=== PATIENT | male | born 1970 | race Asian ===

== ENCOUNTER 2021-02-25 18:09 | Inpatient (IN) | payer MEDICAID ==
[~2021-02-25] VITALS: Ht 167.6 cm; Wt 75.3 kg
[2021-02-25] MEDS ORDERED: *PATIENT'S OWN MED [ENTER DRUG, DOSE, FREQUENCY IN COMMENTS] CLINICAL ONE (19:15)
[2021-02-25] MEDS ORDERED: GENTAMICIN SULFATE 0.3% OPHTHALMIC SOLUTION 5 ML TP PRN (19:15)
[2021-02-25] MEDS ORDERED: INFLUENZA VIRUS VACCINE QVS 2021-22 (6MO+)/PF 60 MCG/0.5 ML SYRINGE IM. ONE (20:15)
[2021-02-25 21:04] VITALS: BP 172/101
[2021-02-25] MEDS: DOCUSATE SODIUM 100 MG CAPSULE PO SCH (21:06)
[2021-02-25] MEDS: ETHYL ALCOHOL 62% ANTISEPTIC NASAL INHALANT 0.6 ML AMPUL NASAL SCH (21:06)
[2021-02-25] MEDS: FUROSEMIDE 80 MG TABLET PO SCH (21:06)
[2021-02-25] MEDS: SENNA 187 MG TABLET PO SCH (21:06)
[2021-02-25] MEDS: SODIUM BICARBONATE 650 MG TABLET PO SCH (21:06)
[2021-02-25] MEDS: NIFEdipine 30 MG ER TABLET PO SCH (21:06)
[2021-02-25] MEDS: CARVEDILOL 12.5 MG TABLET PO SCH (21:06)
[2021-02-25 22:13] VITALS: BP 151/82
[2021-02-25] MEDS: DiphenhydrAMINE HCL 25 MG CAPSULE PO PRN (22:13)
[2021-02-25 23:30] VITALS: BP 151/82
[2021-02-26] MEDS: MYCOPHENOLATE SODIUM 180 MG DR TABLET PO SCH ×2 (07:55→15:46)
[2021-02-26] MEDS: SODIUM BICARBONATE 650 MG TABLET PO SCH ×4 (07:55→20:51)
[2021-02-26] MEDS: FUROSEMIDE 80 MG TABLET PO SCH ×2 (07:56→20:52)
[2021-02-26] MEDS: CALCITRIOL 0.25 MCG CAPSULE PO SCH (07:56)
[2021-02-26] MEDS: TACROLIMUS 1 MG PO SCH (07:57)
[2021-02-26] MEDS: NIFEdipine 30 MG ER TABLET PO SCH ×2 (07:57→20:51)
[2021-02-26] MEDS: TACROLIMUS 4 MG PO SCH (07:57)
[2021-02-26] MEDS: ATORVASTATIN CALCIUM 20 MG TABLET PO SCH (07:58)
[2021-02-26] MEDS: CARVEDILOL 12.5 MG TABLET PO SCH ×2 (07:58→20:51)
[2021-02-26] MEDS: DOCUSATE SODIUM 100 MG CAPSULE PO SCH ×2 (07:58→20:52)
[2021-02-26] MEDS: LevETIRAcetam 500 MG TABLET PO SCH (07:58)
[2021-02-26] MEDS: LOSARTAN POTASSIUM 50 MG TABLET PO SCH (07:58)
[2021-02-26] MEDS: PredniSONE 5 MG TABLET PO SCH (07:58)
[2021-02-26] MEDS: ETHYL ALCOHOL 62% ANTISEPTIC NASAL INHALANT 0.6 ML AMPUL NASAL SCH ×2 (07:59→20:52)
[2021-02-26] MEDS ORDERED: TACROLIMUS 1 MG CAPSULE PO SCH (09:00)
[2021-02-26] MEDS ORDERED: LABETALOL HCL 100 MG TABLET PO SCH (09:00)
[2021-02-26] MEDS ORDERED: HydrALAZINE HCL 20 MG/ML VIAL IVP PRN (09:00)
[2021-02-26 09:17] VITALS: BP 145/87
[2021-02-26] MEDS: GENTAMICIN SULFATE 0.3% OPHTHALMIC SOLUTION 5 ML TP SCH (10:07)
[2021-02-26 10:22] LABS: BASOPHILS % (AUTO) 0.2 % (0.0-2.0); EOSINOPHILS % (AUTO) 1.6 % (1.0-6.0); HEMATOCRIT 35.2 % (41-53); HEMOGLOBIN 11.1 g/dL (13.5-17.5); LYMPHOCYTES % (AUTO) 14.3 % (22.0-44.0); MEAN CORPUSCULAR HEMOGLOBIN 27.3 pg (26.0-34.0); MEAN CORPUSCULAR HGB CONC 31.5 G/dL (31.0-37.0); MEAN CORPUSCULAR VOLUME 87 fL (80-100); MONOCYTES % (AUTO) 7.2 % (2.0-9.0); NEUTROPHILS # (AUTO) 10.5 K/uL (1.8-7.7); NEUTROPHILS % (AUTO) 76.7 % (40.0-70.0); PLATELET COUNT (AUTO) 261 K/uL (150-450); RED BLOOD CELL COUNT(AUTO) 4.07 MIL/uL (4.50-5.90); RED CELL DISTRIBUTION WIDTH 16.2 % (11.5-14.5)
[2021-02-26 10:40] LABS: ALBUMIN 2.5 g/dL (3.4-5.0); BILIRUBIN,TOTAL 0.3 mg/dL (0.1-1.0); CALCIUM, TOTAL 9.5 mg/dL (8.8-10.5); CREATININE 15.09 mg/dL (0.60-1.30); POTASSIUM 4.4 mmol/L (3.5-5.1); TOTAL PROTEIN, SERUM 7.5 g/dL (6.4-8.2)
[2021-02-26 16:00] VITALS: BP 116/79
[2021-02-26] MEDS ORDERED: HydrALAZINE HCL 10 MG TABLET PO PRN (20:45)
[2021-02-26 20:50] VITALS: BP 160/92
[2021-02-26] MEDS: SENNA 187 MG TABLET PO SCH (20:52)
[2021-02-26 21:09] VITALS: BP 160/92
[2021-02-26 21:37] VITALS: BP 143/87
[2021-02-27 00:48] VITALS: BP 148/90
[2021-02-27] MEDS: MYCOPHENOLATE SODIUM 180 MG DR TABLET PO SCH ×2 (06:54→16:00)
[2021-02-27] MEDS: ETHYL ALCOHOL 62% ANTISEPTIC NASAL INHALANT 0.6 ML AMPUL NASAL SCH ×2 (07:33→20:21)
[2021-02-27] MEDS: ATORVASTATIN CALCIUM 20 MG TABLET PO SCH (07:33)
[2021-02-27] MEDS: CARVEDILOL 12.5 MG TABLET PO SCH ×2 (07:33→20:21)
[2021-02-27] MEDS: LOSARTAN POTASSIUM 50 MG TABLET PO SCH (07:33)
[2021-02-27] MEDS: DOCUSATE SODIUM 100 MG CAPSULE PO SCH ×2 (07:33→20:24)
[2021-02-27] MEDS: SODIUM BICARBONATE 650 MG TABLET PO SCH ×4 (07:33→20:21)
[2021-02-27] MEDS: FUROSEMIDE 80 MG TABLET PO SCH ×2 (07:34→20:21)
[2021-02-27] MEDS: NIFEdipine 30 MG ER TABLET PO SCH ×2 (07:34→20:21)
[2021-02-27] MEDS: CALCITRIOL 0.25 MCG CAPSULE PO SCH (07:34)
[2021-02-27] MEDS: LevETIRAcetam 500 MG TABLET PO SCH (07:34)
[2021-02-27 08:00] LABS: CALCIUM, TOTAL 9.7 mg/dL (8.8-10.5); CREATININE 14.51 mg/dL (0.60-1.30); MAGNESIUM 2.8 mg/dL (1.80-2.40); POTASSIUM 4.8 mmol/L (3.5-5.1)
[2021-02-27 08:19] LABS: PHOSPHORUS 11.2 mg/dL (2.5-4.9)
[2021-02-27] MEDS: PredniSONE 5 MG TABLET PO SCH (09:30)
[2021-02-27] MEDS: TACROLIMUS 1 MG PO SCH (09:31)
[2021-02-27] MEDS: TACROLIMUS 4 MG PO SCH (10:25)
[2021-02-27] MEDS: SEVELAMER CARBONATE 800 MG TABLET PO SCH ×2 (12:43→17:37)
[2021-02-27 13:01] VITALS: BP 148/89
[2021-02-27] MEDS: LABETALOL HCL 100 MG TABLET PO SCH ×2 (14:44→20:26)
[2021-02-27 16:00] VITALS: BP 126/78
[2021-02-27] MEDS: DOCUSATE SODIUM 283 MG/5 ML MINI-ENEMA PR SCH (17:38)
[2021-02-27] MEDS: GENTAMICIN SULFATE 0.3% OPHTHALMIC SOLUTION 5 ML TP SCH (18:21)
[2021-02-27 20:10] VITALS: BP 140/86
[2021-02-27] MEDS: DiphenhydrAMINE HCL 25 MG CAPSULE PO PRN (20:21)
[2021-02-27] MEDS: SENNA 187 MG TABLET PO SCH (20:23)
[2021-02-27 23:45] VITALS: BP 142/83
[2021-02-28] MEDS: MYCOPHENOLATE SODIUM 180 MG DR TABLET PO SCH ×2 (05:57→15:21)
[2021-02-28 06:55] LABS: CALCIUM, TOTAL 9.4 mg/dL (8.8-10.5); CREATININE 13.69 mg/dL (0.60-1.30); MAGNESIUM 2.5 mg/dL (1.80-2.40); POTASSIUM 4.6 mmol/L (3.5-5.1)
[2021-02-28 07:21] LABS: PHOSPHORUS 11.5 mg/dL (2.5-4.9)
[2021-02-28 08:00] VITALS: BP 134/83
[2021-02-28] MEDS: DOCUSATE SODIUM 100 MG CAPSULE PO SCH ×2 (09:00→20:34)
[2021-02-28] MEDS: SEVELAMER CARBONATE 800 MG TABLET PO SCH ×3 (09:29→17:41)
[2021-02-28] MEDS: ETHYL ALCOHOL 62% ANTISEPTIC NASAL INHALANT 0.6 ML AMPUL NASAL SCH ×2 (09:30→20:24)
[2021-02-28] MEDS: TACROLIMUS 1 MG PO SCH (09:31)
[2021-02-28] MEDS: TACROLIMUS 4 MG PO SCH (09:32)
[2021-02-28] MEDS: LOSARTAN POTASSIUM 50 MG TABLET PO SCH (09:33)
[2021-02-28] MEDS: CARVEDILOL 12.5 MG TABLET PO SCH ×2 (09:33→20:24)
[2021-02-28] MEDS: PredniSONE 5 MG TABLET PO SCH (09:35)
[2021-02-28] MEDS: LevETIRAcetam 500 MG TABLET PO SCH (09:36)
[2021-02-28] MEDS: FUROSEMIDE 80 MG TABLET PO SCH ×2 (09:37→20:24)
[2021-02-28] MEDS: ATORVASTATIN CALCIUM 20 MG TABLET PO SCH (09:37)
[2021-02-28] MEDS: NIFEdipine 30 MG ER TABLET PO SCH ×2 (09:38→20:24)
[2021-02-28] MEDS: CALCITRIOL 0.25 MCG CAPSULE PO SCH (09:39)
[2021-02-28] MEDS: LABETALOL HCL 100 MG TABLET PO SCH ×2 (09:43→20:24)
[2021-02-28] MEDS: SODIUM BICARBONATE 650 MG TABLET PO SCH ×4 (09:43→20:24)
[2021-02-28] MEDS: GENTAMICIN SULFATE 0.3% OPHTHALMIC SOLUTION 5 ML TP SCH (09:47)
[2021-02-28 16:05] VITALS: BP 132/72
[2021-02-28] MEDS: DOCUSATE SODIUM 283 MG/5 ML MINI-ENEMA PR SCH (18:42)
[2021-02-28 20:20] VITALS: BP 140/83
[2021-02-28] MEDS: DiphenhydrAMINE HCL 25 MG CAPSULE PO PRN (20:24)
[2021-02-28] MEDS: SENNA 187 MG TABLET PO SCH (20:34)
[2021-03-01 00:33] VITALS: BP 134/79
[2021-03-01] MEDS: MYCOPHENOLATE SODIUM 180 MG DR TABLET PO SCH ×2 (06:16→16:31)
[2021-03-01 06:27] LABS: CALCIUM, TOTAL 9.3 mg/dL (8.8-10.5); CREATININE 13.51 mg/dL (0.60-1.30); MAGNESIUM 2.7 mg/dL (1.80-2.40); POTASSIUM 4.5 mmol/L (3.5-5.1)
[2021-03-01] MEDS: SEVELAMER CARBONATE 800 MG TABLET PO SCH ×3 (08:31→17:42)
[2021-03-01] MEDS: SODIUM BICARBONATE 650 MG TABLET PO SCH ×4 (08:40→21:32)
[2021-03-01] MEDS: CARVEDILOL 12.5 MG TABLET PO SCH ×2 (08:40→21:32)
[2021-03-01] MEDS: ATORVASTATIN CALCIUM 20 MG TABLET PO SCH (08:40)
[2021-03-01] MEDS: DOCUSATE SODIUM 100 MG CAPSULE PO SCH ×2 (08:40→19:37)
[2021-03-01] MEDS: LevETIRAcetam 500 MG TABLET PO SCH (08:40)
[2021-03-01] MEDS: TACROLIMUS 1 MG PO SCH (08:41)
[2021-03-01] MEDS: CALCITRIOL 0.25 MCG CAPSULE PO SCH (08:41)
[2021-03-01] MEDS: NIFEdipine 30 MG ER TABLET PO SCH ×2 (08:41→21:32)
[2021-03-01] MEDS: GENTAMICIN SULFATE 0.3% OPHTHALMIC SOLUTION 5 ML TP SCH (08:42)
[2021-03-01] MEDS: TACROLIMUS 4 MG PO SCH (08:43)
[2021-03-01] MEDS: LABETALOL HCL 100 MG TABLET PO SCH ×2 (08:44→21:42)
[2021-03-01] MEDS: FUROSEMIDE 80 MG TABLET PO SCH ×2 (08:45→21:32)
[2021-03-01] MEDS: PredniSONE 5 MG TABLET PO SCH (08:45)
[2021-03-01] MEDS: LOSARTAN POTASSIUM 50 MG TABLET PO SCH (08:47)
[2021-03-01] MEDS: ETHYL ALCOHOL 62% ANTISEPTIC NASAL INHALANT 0.6 ML AMPUL NASAL SCH ×2 (08:47→21:31)
[2021-03-01 09:01] VITALS: BP 139/87
[2021-03-01] MEDS: ACETAMINOPHEN 325 MG TABLET PO PRN (09:01)
[2021-03-01] MEDS: DiphenhydrAMINE HCL 25 MG CAPSULE PO PRN (12:16)
[2021-03-01] MEDS: NYSTATIN 15 GM POWDER BOTTLE TP SCH ×2 (16:31→21:31)
[2021-03-01 16:37] VITALS: BP 131/77
[2021-03-01] MEDS: DOCUSATE SODIUM 283 MG/5 ML MINI-ENEMA PR SCH (19:32)
[2021-03-01] MEDS: SENNA 187 MG TABLET PO SCH (19:37)
[2021-03-01 21:27] VITALS: BP 135/75
[2021-03-02] MEDS: DiphenhydrAMINE HCL 25 MG CAPSULE PO PRN (01:19)
[2021-03-02 01:22] VITALS: BP 130/77
[2021-03-02] MEDS: NYSTATIN 15 GM POWDER BOTTLE TP SCH ×3 (07:18→20:43)
[2021-03-02] MEDS: TACROLIMUS 4 MG PO SCH (07:19)
[2021-03-02] MEDS: TACROLIMUS 1 MG PO SCH (07:19)
[2021-03-02] MEDS: PredniSONE 5 MG TABLET PO SCH (07:20)
[2021-03-02] MEDS: MYCOPHENOLATE SODIUM 180 MG DR TABLET PO SCH ×2 (07:20→16:08)
[2021-03-02] MEDS: NIFEdipine 30 MG ER TABLET PO SCH ×2 (07:20→21:19)
[2021-03-02] MEDS: ATORVASTATIN CALCIUM 20 MG TABLET PO SCH (07:20)
[2021-03-02] MEDS: DOCUSATE SODIUM 100 MG CAPSULE PO SCH ×2 (07:20→20:43)
[2021-03-02] MEDS: ETHYL ALCOHOL 62% ANTISEPTIC NASAL INHALANT 0.6 ML AMPUL NASAL SCH ×2 (07:20→20:44)
[2021-03-02] MEDS: SEVELAMER CARBONATE 800 MG TABLET PO SCH ×3 (07:20→18:02)
[2021-03-02] MEDS: FUROSEMIDE 80 MG TABLET PO SCH ×2 (07:21→20:43)
[2021-03-02] MEDS: LevETIRAcetam 500 MG TABLET PO SCH (07:21)
[2021-03-02] MEDS: CARVEDILOL 12.5 MG TABLET PO SCH ×2 (07:21→20:43)
[2021-03-02] MEDS: LOSARTAN POTASSIUM 50 MG TABLET PO SCH (07:21)
[2021-03-02] MEDS: SODIUM BICARBONATE 650 MG TABLET PO SCH ×4 (07:21→20:43)
[2021-03-02] MEDS: LABETALOL HCL 100 MG TABLET PO SCH ×2 (07:21→21:19)
[2021-03-02 07:39] LABS: CALCIUM, TOTAL 8.8 mg/dL (8.8-10.5); CREATININE 13.02 mg/dL (0.60-1.30); MAGNESIUM 2.4 mg/dL (1.80-2.40); POTASSIUM 4.2 mmol/L (3.5-5.1)
[2021-03-02 08:04] LABS: PHOSPHORUS 11.3 mg/dL (2.5-4.9)
[2021-03-02 10:32] VITALS: BP 142/79
[2021-03-02 16:00] VITALS: BP 143/74
[2021-03-02] MEDS: GENTAMICIN SULFATE 0.3% OPHTHALMIC SOLUTION 5 ML TP SCH (16:23)
[2021-03-02 20:42] VITALS: BP 144/81
[2021-03-02] MEDS: SENNA 187 MG TABLET PO SCH (20:43)
[2021-03-02 23:00] VITALS: BP 145/80
[2021-03-03] MEDS: GENTAMICIN SULFATE 0.3% OPHTHALMIC SOLUTION 5 ML TP SCH (07:32)
[2021-03-03] MEDS: TACROLIMUS 1 MG PO SCH (07:32)
[2021-03-03] MEDS: NYSTATIN 15 GM POWDER BOTTLE TP SCH ×3 (07:32→20:31)
[2021-03-03] MEDS: ACETAMINOPHEN 325 MG TABLET PO PRN (07:34)
[2021-03-03] MEDS: DOCUSATE SODIUM 100 MG CAPSULE PO SCH ×2 (07:34→20:30)
[2021-03-03] MEDS: SODIUM BICARBONATE 650 MG TABLET PO SCH ×4 (07:34→20:31)
[2021-03-03] MEDS: NIFEdipine 30 MG ER TABLET PO SCH ×2 (07:34→20:58)
[2021-03-03] MEDS: MYCOPHENOLATE SODIUM 180 MG DR TABLET PO SCH ×2 (07:34→16:23)
[2021-03-03] MEDS: FUROSEMIDE 80 MG TABLET PO SCH ×2 (07:38→20:58)
[2021-03-03] MEDS: LevETIRAcetam 500 MG TABLET PO SCH (07:38)
[2021-03-03] MEDS: PredniSONE 5 MG TABLET PO SCH (07:39)
[2021-03-03] MEDS: CARVEDILOL 12.5 MG TABLET PO SCH ×2 (07:39→20:33)
[2021-03-03] MEDS: LOSARTAN POTASSIUM 50 MG TABLET PO SCH (07:39)
[2021-03-03] MEDS: ATORVASTATIN CALCIUM 20 MG TABLET PO SCH (07:39)
[2021-03-03] MEDS: LABETALOL HCL 100 MG TABLET PO SCH ×2 (07:39→20:33)
[2021-03-03 08:00] VITALS: BP 155/82
[2021-03-03 08:08] LABS: BASOPHILS % (AUTO) 0.3 % (0.0-2.0); EOSINOPHILS % (AUTO) 1.5 % (1.0-6.0); HEMATOCRIT 30.9 % (41-53); HEMOGLOBIN 9.9 g/dL (13.5-17.5); LYMPHOCYTES # (AUTO) 2.4 K/uL (1.0-4.8); LYMPHOCYTES % (AUTO) 20.4 % (22.0-44.0); MEAN CORPUSCULAR HEMOGLOBIN 27.5 pg (26.0-34.0); MEAN CORPUSCULAR HGB CONC 32.1 G/dL (31.0-37.0); MEAN CORPUSCULAR VOLUME 86 fL (80-100); MONOCYTES # (AUTO) 1.1 K/uL (0.1-1.0); MONOCYTES % (AUTO) 8.9 % (2.0-9.0); NEUTROPHILS # (AUTO) 8.2 K/uL (1.8-7.7); NEUTROPHILS % (AUTO) 68.9 % (40.0-70.0); PLATELET COUNT (AUTO) 282 K/uL (150-450); RED BLOOD CELL COUNT(AUTO) 3.61 MIL/uL (4.50-5.90); RED CELL DISTRIBUTION WIDTH 15.9 % (11.5-14.5)
[2021-03-03] MEDS: SEVELAMER CARBONATE 800 MG TABLET PO SCH ×3 (08:08→17:46)
[2021-03-03] MEDS: ETHYL ALCOHOL 62% ANTISEPTIC NASAL INHALANT 0.6 ML AMPUL NASAL SCH ×2 (09:19→20:28)
[2021-03-03] MEDS: TACROLIMUS 4 MG PO SCH (09:21)
[2021-03-03 10:00] VITALS: BP 120/82
[2021-03-03 16:34] VITALS: BP 151/68
[2021-03-03] MEDS: SENNA 187 MG TABLET PO SCH (20:30)
[2021-03-03 20:32] VITALS: BP 153/90
[2021-03-03] MEDS: DiphenhydrAMINE HCL 25 MG CAPSULE PO PRN (23:30)
[2021-03-03 23:35] VITALS: BP 144/75
[2021-03-04] MEDS: MYCOPHENOLATE SODIUM 180 MG DR TABLET PO SCH ×2 (05:33→15:11)
[2021-03-04 07:56] LABS: CALCIUM, TOTAL 8.7 mg/dL (8.8-10.5); CREATININE 14.03 mg/dL (0.60-1.30); MAGNESIUM 2.4 mg/dL (1.80-2.40); POTASSIUM 4.1 mmol/L (3.5-5.1)
[2021-03-04 08:32] LABS: PHOSPHORUS 11.3 mg/dL (2.5-4.9)
[2021-03-04] MEDS: ERGOCALCIFEROL (VIT D2) 50,000 UNITS [1,250 MCG] CAPSULE PO SCH (08:37)
[2021-03-04] MEDS: SODIUM BICARBONATE 650 MG TABLET PO SCH ×4 (08:37→22:01)
[2021-03-04] MEDS: LABETALOL HCL 100 MG TABLET PO SCH ×2 (08:37→22:31)
[2021-03-04] MEDS: FUROSEMIDE 80 MG TABLET PO SCH ×2 (08:38→22:31)
[2021-03-04] MEDS: PredniSONE 5 MG TABLET PO SCH (08:38)
[2021-03-04] MEDS: SEVELAMER CARBONATE 800 MG TABLET PO SCH ×3 (08:39→22:00)
[2021-03-04] MEDS: LOSARTAN POTASSIUM 50 MG TABLET PO SCH (08:40)
[2021-03-04] MEDS: LevETIRAcetam 500 MG TABLET PO SCH (08:40)
[2021-03-04] MEDS: NIFEdipine 30 MG ER TABLET PO SCH ×2 (08:40→22:01)
[2021-03-04] MEDS: CARVEDILOL 12.5 MG TABLET PO SCH ×2 (08:40→22:00)
[2021-03-04] MEDS: ATORVASTATIN CALCIUM 20 MG TABLET PO SCH (08:41)
[2021-03-04] MEDS: TACROLIMUS 4 MG PO SCH (08:42)
[2021-03-04] MEDS: TACROLIMUS 1 MG PO SCH (08:42)
[2021-03-04] MEDS: NYSTATIN 15 GM POWDER BOTTLE TP SCH ×3 (08:43→22:31)
[2021-03-04] MEDS: DOCUSATE SODIUM 100 MG CAPSULE PO SCH ×2 (08:44→22:00)
[2021-03-04] MEDS: ETHYL ALCOHOL 62% ANTISEPTIC NASAL INHALANT 0.6 ML AMPUL NASAL SCH ×2 (08:44→22:00)
[2021-03-04 09:17] VITALS: BP 151/83
[2021-03-04] MEDS: GENTAMICIN SULFATE 0.3% OPHTHALMIC SOLUTION 5 ML TP SCH (10:00)
[2021-03-04] MEDS: FLUCONAZOLE 100 MG TABLET PO SCH (12:07)
[2021-03-04 16:01] VITALS: BP 147/80
[2021-03-04] MEDS ORDERED: SODIUM CHLORIDE 0.9% 1,000 ML ONE ×2 (16:55)
[2021-03-04 21:57] VITALS: BP 144/91
[2021-03-04] MEDS: SENNA 187 MG TABLET PO SCH (22:00)
[2021-03-04] MEDS: DiphenhydrAMINE HCL 25 MG CAPSULE PO PRN (22:34)
[2021-03-05 07:12] LABS: CALCIUM, TOTAL 8.8 mg/dL (8.8-10.5); CREATININE 7.6 mg/dL (0.60-1.30); MAGNESIUM 2.1 mg/dL (1.80-2.40); PHOSPHORUS 6.1 mg/dL (2.5-4.9); POTASSIUM 3.7 mmol/L (3.5-5.1)
[2021-03-05] MEDS: MYCOPHENOLATE SODIUM 180 MG DR TABLET PO SCH ×2 (07:27→16:32)
[2021-03-05] MEDS: TACROLIMUS 4 MG PO SCH (07:49)
[2021-03-05] MEDS: TACROLIMUS 1 MG PO SCH (07:49)
[2021-03-05] MEDS: SEVELAMER CARBONATE 800 MG TABLET PO SCH ×3 (07:49→16:32)
[2021-03-05] MEDS: ETHYL ALCOHOL 62% ANTISEPTIC NASAL INHALANT 0.6 ML AMPUL NASAL SCH ×2 (07:49→20:52)
[2021-03-05] MEDS: DOCUSATE SODIUM 100 MG CAPSULE PO SCH ×2 (07:50→20:53)
[2021-03-05] MEDS: LABETALOL HCL 100 MG TABLET PO SCH ×2 (07:51→20:54)
[2021-03-05] MEDS: ATORVASTATIN CALCIUM 20 MG TABLET PO SCH (07:51)
[2021-03-05] MEDS: SODIUM BICARBONATE 650 MG TABLET PO SCH ×4 (07:51→20:53)
[2021-03-05] MEDS: NIFEdipine 30 MG ER TABLET PO SCH ×2 (07:52→20:53)
[2021-03-05] MEDS: FUROSEMIDE 80 MG TABLET PO SCH ×2 (07:52→20:52)
[2021-03-05] MEDS: CARVEDILOL 12.5 MG TABLET PO SCH ×2 (07:52→20:53)
[2021-03-05] MEDS: LevETIRAcetam 500 MG TABLET PO SCH (07:52)
[2021-03-05] MEDS: LOSARTAN POTASSIUM 50 MG TABLET PO SCH (07:52)
[2021-03-05] MEDS: PredniSONE 5 MG TABLET PO SCH (07:53)
[2021-03-05] MEDS: FLUCONAZOLE 100 MG TABLET PO SCH (07:53)
[2021-03-05] MEDS: NYSTATIN 15 GM POWDER BOTTLE TP SCH ×3 (07:53→20:54)
[2021-03-05 09:42] VITALS: BP 133/76
[2021-03-05 19:34] VITALS: BP 131/61
[2021-03-05] MEDS: SENNA 187 MG TABLET PO SCH (20:53)
[2021-03-05 23:46] VITALS: BP 132/77
[2021-03-06] MEDS: MYCOPHENOLATE SODIUM 180 MG DR TABLET PO SCH ×2 (08:15→16:11)
[2021-03-06] MEDS: FLUCONAZOLE 100 MG TABLET PO SCH (08:16)
[2021-03-06] MEDS: SODIUM BICARBONATE 650 MG TABLET PO SCH (08:16)
[2021-03-06] MEDS: NIFEdipine 30 MG ER TABLET PO SCH ×2 (08:17→23:39)
[2021-03-06] MEDS: CARVEDILOL 12.5 MG TABLET PO SCH (08:17)
[2021-03-06] MEDS: LOSARTAN POTASSIUM 50 MG TABLET PO SCH (08:17)
[2021-03-06] MEDS: SEVELAMER CARBONATE 800 MG TABLET PO SCH ×3 (08:17→17:39)
[2021-03-06] MEDS: FUROSEMIDE 80 MG TABLET PO SCH (08:18)
[2021-03-06] MEDS: LABETALOL HCL 100 MG TABLET PO SCH ×2 (08:18→23:39)
[2021-03-06] MEDS: DOCUSATE SODIUM 100 MG CAPSULE PO SCH ×2 (08:18→23:39)
[2021-03-06] MEDS: PredniSONE 5 MG TABLET PO SCH (08:18)
[2021-03-06] MEDS: LevETIRAcetam 500 MG TABLET PO SCH (08:19)
[2021-03-06] MEDS: TACROLIMUS 4 MG PO SCH (08:19)
[2021-03-06] MEDS: TACROLIMUS 1 MG PO SCH (08:19)
[2021-03-06] MEDS: ATORVASTATIN CALCIUM 20 MG TABLET PO SCH (08:19)
[2021-03-06] MEDS: NYSTATIN 15 GM POWDER BOTTLE TP SCH ×3 (08:20→21:30)
[2021-03-06] MEDS: ETHYL ALCOHOL 62% ANTISEPTIC NASAL INHALANT 0.6 ML AMPUL NASAL SCH ×2 (08:21→21:30)
[2021-03-06 10:35] VITALS: BP 117/65
[2021-03-06 16:10] VITALS: BP 141/77
[2021-03-06] MEDS ORDERED: SODIUM CHLORIDE 0.9% 1,000 ML ONE (18:41)
[2021-03-06] MEDS: DiphenhydrAMINE HCL 25 MG CAPSULE PO PRN (23:37)
[2021-03-06] MEDS: SENNA 187 MG TABLET PO SCH (23:39)
[2021-03-07 00:12] VITALS: BP 142/81
[2021-03-07] MEDS: CARVEDILOL 12.5 MG TABLET PO SCH ×3 (00:20→20:53)
[2021-03-07] MEDS: FUROSEMIDE 80 MG TABLET PO SCH ×3 (00:20→22:09)
[2021-03-07 08:00] VITALS: BP 122/76
[2021-03-07] MEDS: MYCOPHENOLATE SODIUM 180 MG DR TABLET PO SCH ×2 (08:09→16:36)
[2021-03-07] MEDS: SEVELAMER CARBONATE 800 MG TABLET PO SCH ×3 (08:09→18:00)
[2021-03-07] MEDS: DiphenhydrAMINE HCL 25 MG CAPSULE PO PRN (08:09)
[2021-03-07] MEDS: ETHYL ALCOHOL 62% ANTISEPTIC NASAL INHALANT 0.6 ML AMPUL NASAL SCH ×2 (10:20→20:53)
[2021-03-07] MEDS: TACROLIMUS 1 MG PO SCH (10:21)
[2021-03-07] MEDS: DOCUSATE SODIUM 100 MG CAPSULE PO SCH ×2 (10:21→20:54)
[2021-03-07] MEDS: TACROLIMUS 4 MG PO SCH (10:21)
[2021-03-07] MEDS: PredniSONE 5 MG TABLET PO SCH (10:22)
[2021-03-07] MEDS: LOSARTAN POTASSIUM 50 MG TABLET PO SCH (10:22)
[2021-03-07] MEDS: FLUCONAZOLE 100 MG TABLET PO SCH (10:22)
[2021-03-07] MEDS: ATORVASTATIN CALCIUM 20 MG TABLET PO SCH (10:23)
[2021-03-07] MEDS: LevETIRAcetam 500 MG TABLET PO SCH (10:23)
[2021-03-07] MEDS: LABETALOL HCL 100 MG TABLET PO SCH ×2 (10:24→22:09)
[2021-03-07] MEDS: NIFEdipine 30 MG ER TABLET PO SCH ×2 (10:24→21:31)
[2021-03-07] MEDS: NYSTATIN 15 GM POWDER BOTTLE TP SCH ×3 (11:58→20:54)
[2021-03-07 15:22] VITALS: BP 138/83
[2021-03-07 20:48] VITALS: BP 136/76
[2021-03-07] MEDS: SENNA 187 MG TABLET PO SCH (20:54)
[2021-03-07 22:05] VITALS: BP 131/79
[2021-03-08 00:32] VITALS: BP 140/79
[2021-03-08] MEDS ORDERED: DOCUSATE SODIUM 100 MG CAPSULE PO PRN (06:15)
[2021-03-08] MEDS: MYCOPHENOLATE SODIUM 180 MG DR TABLET PO SCH ×2 (07:27→15:31)
[2021-03-08] MEDS: TACROLIMUS 1 MG PO SCH (07:27)
[2021-03-08] MEDS: FUROSEMIDE 80 MG TABLET PO SCH ×2 (07:27→21:09)
[2021-03-08] MEDS: ETHYL ALCOHOL 62% ANTISEPTIC NASAL INHALANT 0.6 ML AMPUL NASAL SCH ×2 (07:27→20:22)
[2021-03-08] MEDS: LABETALOL HCL 100 MG TABLET PO SCH ×2 (07:28→20:17)
[2021-03-08] MEDS: LevETIRAcetam 500 MG TABLET PO SCH (07:28)
[2021-03-08] MEDS: PredniSONE 5 MG TABLET PO SCH (07:28)
[2021-03-08] MEDS: SEVELAMER CARBONATE 800 MG TABLET PO SCH ×3 (07:28→17:26)
[2021-03-08] MEDS: NYSTATIN 15 GM POWDER BOTTLE TP SCH ×3 (07:28→20:18)
[2021-03-08] MEDS: CARVEDILOL 12.5 MG TABLET PO SCH ×2 (07:29→20:17)
[2021-03-08] MEDS: ATORVASTATIN CALCIUM 20 MG TABLET PO SCH (07:29)
[2021-03-08] MEDS: NIFEdipine 30 MG ER TABLET PO SCH ×2 (07:29→21:09)
[2021-03-08] MEDS: LOSARTAN POTASSIUM 50 MG TABLET PO SCH (07:29)
[2021-03-08] MEDS: TACROLIMUS 4 MG PO SCH (07:32)
[2021-03-08] MEDS: EPOETIN ALFA 10,000 UNITS/ML 2 ML VIAL SQ SCH (07:36)
[2021-03-08 09:00] VITALS: BP 116/74
[2021-03-08 16:18] VITALS: BP 104/54
[2021-03-08 20:17] VITALS: BP 129/79
[2021-03-08 23:21] VITALS: BP 141/82
[2021-03-09] MEDS: DiphenhydrAMINE HCL 25 MG CAPSULE PO PRN (01:27)
[2021-03-09] MEDS ORDERED: ATOR20TA86 PO ×2 (03:00→04:41)
[2021-03-09] MEDS ORDERED: GABA-1181 PO (03:00)
[2021-03-09] MEDS ORDERED: DULO20CA27 PO (03:00)
[2021-03-09] MEDS ORDERED: FAMO20 PO (03:00)
[2021-03-09] MEDS ORDERED: ASCO500 PO (03:00)
[2021-03-09] MEDS ORDERED: MULT-1133 PO (03:00)
[2021-03-09] MEDS ORDERED: SEVE800T17 PO (04:41)
[2021-03-09] MEDS ORDERED: TACR4TAB PO (04:41)
[2021-03-09] MEDS ORDERED: ERGO500054 PO (04:41)
[2021-03-09] MEDS ORDERED: TACR1TAB PO (04:41)
[2021-03-09] MEDS ORDERED: MYCO180T12 PO (04:41)
[2021-03-09] MEDS ORDERED: NIFE30TA5 PO (04:41)
[2021-03-09] MEDS ORDERED: CARV12 PO (04:41)
[2021-03-09] MEDS ORDERED: LOSA50TA37 PO (04:41)
[2021-03-09] MEDS ORDERED: FURO80 PO (04:41)
[2021-03-09] MEDS ORDERED: LEVE500T20 PO (04:41)
[2021-03-09] MEDS ORDERED: LABE100T51 PO (04:41)
[2021-03-09] MEDS ORDERED: PRED-409 PO (04:41)
[2021-03-09] MEDS: MYCOPHENOLATE SODIUM 180 MG DR TABLET PO SCH ×2 (06:24→15:42)
[2021-03-09] MEDS: FUROSEMIDE 80 MG TABLET PO SCH ×2 (08:07→20:59)
[2021-03-09] MEDS: LABETALOL HCL 100 MG TABLET PO SCH ×2 (08:07→20:59)
[2021-03-09] MEDS: PredniSONE 5 MG TABLET PO SCH (08:07)
[2021-03-09] MEDS: NIFEdipine 30 MG ER TABLET PO SCH ×2 (08:07→20:59)
[2021-03-09] MEDS: SEVELAMER CARBONATE 800 MG TABLET PO SCH ×3 (08:07→17:00)
[2021-03-09] MEDS: LevETIRAcetam 500 MG TABLET PO SCH (08:08)
[2021-03-09] MEDS: CARVEDILOL 12.5 MG TABLET PO SCH ×2 (08:08→20:59)
[2021-03-09] MEDS: TACROLIMUS 1 MG PO SCH (08:08)
[2021-03-09] MEDS: ATORVASTATIN CALCIUM 20 MG TABLET PO SCH (08:08)
[2021-03-09] MEDS: LOSARTAN POTASSIUM 50 MG TABLET PO SCH (08:08)
[2021-03-09] MEDS: TACROLIMUS 4 MG PO SCH (08:09)
[2021-03-09] MEDS: NYSTATIN 15 GM POWDER BOTTLE TP SCH ×3 (08:09→20:59)
[2021-03-09 09:00] VITALS: BP 109/66
[2021-03-09] MEDS: ETHYL ALCOHOL 62% ANTISEPTIC NASAL INHALANT 0.6 ML AMPUL NASAL SCH ×2 (10:02→20:59)
[2021-03-09 16:00] VITALS: BP 108/77
[2021-03-09] MEDS ORDERED: SODIUM CHLORIDE 0.9% 2,000 ML ONE (16:26)
[2021-03-09 20:47] VITALS: BP 132/82
[2021-03-10 01:51] VITALS: BP 135/76
[2021-03-10] MEDS: MYCOPHENOLATE SODIUM 180 MG DR TABLET PO SCH ×2 (07:12→17:10)
[2021-03-10] MEDS: SEVELAMER CARBONATE 800 MG TABLET PO SCH ×3 (07:12→17:44)
[2021-03-10] MEDS: LOSARTAN POTASSIUM 50 MG TABLET PO SCH (07:57)
[2021-03-10] MEDS: ATORVASTATIN CALCIUM 20 MG TABLET PO SCH (07:57)
[2021-03-10] MEDS: ETHYL ALCOHOL 62% ANTISEPTIC NASAL INHALANT 0.6 ML AMPUL NASAL SCH ×2 (07:57→20:02)
[2021-03-10] MEDS: LevETIRAcetam 500 MG TABLET PO SCH (07:58)
[2021-03-10] MEDS: CARVEDILOL 12.5 MG TABLET PO SCH ×2 (07:58→20:02)
[2021-03-10] MEDS: TACROLIMUS 4 MG PO SCH (07:59)
[2021-03-10] MEDS: TACROLIMUS 1 MG PO SCH (07:59)
[2021-03-10] MEDS: PredniSONE 5 MG TABLET PO SCH (08:00)
[2021-03-10] MEDS: FUROSEMIDE 80 MG TABLET PO SCH ×2 (08:01→20:35)
[2021-03-10] MEDS: LABETALOL HCL 100 MG TABLET PO SCH ×2 (08:01→20:03)
[2021-03-10] MEDS: NIFEdipine 30 MG ER TABLET PO SCH ×2 (08:01→20:35)
[2021-03-10] MEDS: NYSTATIN 15 GM POWDER BOTTLE TP SCH ×3 (08:02→20:02)
[2021-03-10] MEDS: EPOETIN ALFA 10,000 UNITS/ML 2 ML VIAL SQ SCH (08:04)
[2021-03-10 09:00] VITALS: BP 131/74
[2021-03-10 16:02] VITALS: BP 142/91
[2021-03-10 20:01] VITALS: BP 146/86
[2021-03-10 23:30] VITALS: BP 152/88
[2021-03-11 05:48] LABS: BASOPHILS % (AUTO) 0.6 % (0.0-2.0); EOSINOPHILS % (AUTO) 2.8 % (1.0-6.0); HEMATOCRIT 27.9 % (41-53); HEMOGLOBIN 8.7 g/dL (13.5-17.5); LYMPHOCYTES # (AUTO) 3.2 K/uL (1.0-4.8); LYMPHOCYTES % (AUTO) 33.2 % (22.0-44.0); MEAN CORPUSCULAR HGB CONC 31.2 G/dL (31.0-37.0); MEAN CORPUSCULAR VOLUME 87 fL (80-100); MONOCYTES # (AUTO) 0.9 K/uL (0.1-1.0); MONOCYTES % (AUTO) 9.6 % (2.0-9.0); NEUTROPHILS # (AUTO) 5.2 K/uL (1.8-7.7); NEUTROPHILS % (AUTO) 53.8 % (40.0-70.0); PLATELET COUNT (AUTO) 208 K/uL (150-450); RED BLOOD CELL COUNT(AUTO) 3.21 MIL/uL (4.50-5.90)
[2021-03-11 06:07] LABS: CALCIUM, TOTAL 9.3 mg/dL (8.8-10.5); CREATININE 8.02 mg/dL (0.60-1.30); MAGNESIUM 2.8 mg/dL (1.80-2.40); PHOSPHORUS 6.1 mg/dL (2.5-4.9); POTASSIUM 4.1 mmol/L (3.5-5.1)
[2021-03-11 09:01] VITALS: BP 138/79
[2021-03-11] MEDS: ETHYL ALCOHOL 62% ANTISEPTIC NASAL INHALANT 0.6 ML AMPUL NASAL SCH (09:02)
[2021-03-11] MEDS: SEVELAMER CARBONATE 800 MG TABLET PO SCH ×2 (09:02→13:03)
[2021-03-11] MEDS: MYCOPHENOLATE SODIUM 180 MG DR TABLET PO SCH (09:03)
[2021-03-11] MEDS: TACROLIMUS 1 MG PO SCH (09:07)
[2021-03-11] MEDS: TACROLIMUS 4 MG PO SCH (09:07)
[2021-03-11] MEDS: LevETIRAcetam 500 MG TABLET PO SCH (09:08)
[2021-03-11] MEDS: PredniSONE 5 MG TABLET PO SCH (09:08)
[2021-03-11] MEDS: LOSARTAN POTASSIUM 50 MG TABLET PO SCH (09:08)
[2021-03-11] MEDS: CARVEDILOL 12.5 MG TABLET PO SCH (09:08)
[2021-03-11] MEDS: FUROSEMIDE 80 MG TABLET PO SCH (09:09)
[2021-03-11] MEDS: ATORVASTATIN CALCIUM 20 MG TABLET PO SCH (09:09)
[2021-03-11] MEDS: NIFEdipine 30 MG ER TABLET PO SCH (09:09)
[2021-03-11] MEDS: LABETALOL HCL 100 MG TABLET PO SCH (09:10)
[2021-03-11] MEDS: ERGOCALCIFEROL (VIT D2) 50,000 UNITS [1,250 MCG] CAPSULE PO SCH (09:10)
[2021-03-11] MEDS: NYSTATIN 15 GM POWDER BOTTLE TP SCH (09:10)
[2021-03-11 10:30] VITALS: BP 141/74
[2021-03-11] MEDS ORDERED: PANTOPRAZOLE SODIUM 40 MG DR TABLET PO SCH (10:30)
[2021-03-11] MEDS ORDERED: PANT-31 PO (12:44)
[2021-03-12] MEDS ORDERED: EPOETIN ALFA 10,000 UNITS/ML VIAL SQ SCH (09:00)
== END 2021-03-11 13:50 | disposition home or self-care (01) | DRG 55 ==
LOC: 2WR 18:30
PROVIDERS: ADMIT Physical Medicine & Rehabilitation; ATTEND Physical Medicine & Rehabilitation
DX: S06.5X0A Traumatic subdural hemorrhage without loss of consciousness, initial encounter (principal); G93.40 Encephalopathy, unspecified; T86.12 Kidney transplant failure; Z76.82 Awaiting organ transplant status; I12.0 Hypertensive chronic kidney disease with stage 5 chronic kidney disease or end stage renal disease; D63.1 Anemia in chronic kidney disease; E83.39 Other disorders of phosphorus metabolism; R53.81 Other malaise; N18.6 End stage renal disease; R56.9 Unspecified convulsions; R47.01 Aphasia; R25.1 Tremor, unspecified; K59.00 Constipation, unspecified; N25.81 Secondary hyperparathyroidism of renal origin; R32 Unspecified urinary incontinence; W18.39XA Other fall on same level, initial encounter; F32.A Depression, unspecified; E78.5 Hyperlipidemia, unspecified; Y83.0 Surgical operation with transplant of whole organ as the cause of abnormal reaction of the patient, or of later complication, without mention of misadventure at the time of the procedure; Y92.89 Other specified places as the place of occurrence of the external cause; Z99.2 Dependence on renal dialysis; Z68.26 Body mass index [BMI] 26.0-26.9, adult; Y93.89 Activity, other specified; Y99.8 Other external cause status
CPT/HCPCS: 71045; 80048; 80053; 80197; 82271; 83735; 83970; 84100; 85025; 86706; 87081; 87340; 90686; 90935; 90945; 92507; 92523; 93970; 97110; 97112; 97116; 97150; 97163; 97167; 97530; 97535; 99366; J0885; J7030; J7507; J7518; Q9967; 36415-L1; 36415-TC; G0008